=== PATIENT | female | born 1995 | race African-American/Black ===

== ENCOUNTER 2017-02-18 14:25 | Emergency (ER) | payer OTHER ==
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
[2017-02-18 16:06] VITALS: BP 112/62
== END 2017-02-18 15:54 | disposition home or self-care (01) ==
LOC: ER 14:25 → EDBD 14:25 → ER 15:54
DX: R51 Headache (principal); M25.561 Pain in right knee; M54.89 Other dorsalgia; V89.2XXA Person injured in unspecified motor-vehicle accident, traffic, initial encounter
CPT/HCPCS: 70450; 72070; 99284